=== PATIENT | female | born 1980 | race Hispanic/Latino ===

== ENCOUNTER 2019-05-08 14:29 | Emergency (ER) | payer SELFPAY ==
[~2019-05-08] VITALS: Ht 152.4 cm; Wt 74.8 kg
[2019-05-08] MEDS ORDERED: DEXAMETHASONE SOD PHOS 10 MG/1 ML VIAL IM NR (14:45)
[2019-05-08] MEDS ORDERED: FAMOTIDINE 20 MG TAB PO ONE (14:45)
[2019-05-08] MEDS ORDERED: DEXAMETHASONE SOD PHOS 10 MG/1 ML VIAL ONE (14:57)
[2019-05-08] MEDS ORDERED: DIPHENHYDRAMINE HCL 25 MG CAP PO NR (15:00)
[2019-05-08] MEDS ORDERED: FAMOTIDINE 20 MG TAB PO NR (15:15)
== END 2019-05-08 15:51 | disposition home or self-care (01) ==
LOC: ER 14:29
DX: R21 Rash and other nonspecific skin eruption (principal); I10 Essential (primary) hypertension
CPT/HCPCS: 99282; J1100